=== PATIENT | female | born 1985 | race Caucasian/White ===

== ENCOUNTER 2019-04-11 13:38 | Outpatient (CLI) | payer OTHER ==
[~2019-04-11] VITALS: Ht 167.6 cm; Wt 87.9 kg
[~2019-04-11 13:38] MED LIST: PREN1TAB49 PO
[2019-04-11 14:13] VITALS: Ht 167.6 cm; Wt 87.9 kg
[2019-04-11 14:14] VITALS: BP 96/54; PULSE 83; RESP 20
[2019-04-11] MEDS ORDERED: ACETAMINOPHEN 325 MG TAB PO ONE (18:30)
--- NOTE | 2019-04-11 20:41 | PN ---
Triage Information Date/Time Reason for visit: Back pain and abdominal cramp Weeks of Gestation 24 weeks /Para -0-0-3 Diabetes: none Objective Vital Signs Date Temp Pulse Resp B/P (MAP) Pulse Ox O2 O2 Flow FiO2 Time Delivery Rate 04/11/19 98.1 83 20 96/54 (68) Room Air 14:14 Heart Rate: 130's Results/Medications Result Diagram: 04/11/19 1400 Results 24 hrs Laboratory Tests Test 04/11/19 14:00 White Blood Count 8.2 # Red Blood Count 3.63 L Hemoglobin 10.8 L Hematocrit 33.2 L Mean Corpuscular Volume 91.5 Mean Corpuscular Hemoglobin 29.8 Mean Corpuscular Hemoglobin Concent 32.5 Red Cell Distribution Width 13.5 Platelet Count 271 Mean Platelet Volume 9.8 # Immature Granulocytes % 0.500 H Neutrophils % 68.8 Lymphocytes % 18.7 Monocytes % 6.9 Eosinophils % 4.7 Basophils % 0.4 Nucleated Red Blood Cells % 0.0 Immature Granulocytes # 0.040 H Neutrophils # 5.6 Lymphocytes # 1.5 Monocytes # 0.6 Eosinophils # 0.4 Basophils # 0.0 Nucleated Red Blood Cells # 0.0 Urine Color YELLOW Urine Clarity CLOUDY A Urine pH 5.0 Urine Specific [place] 1.024 Urine Ketones NEGATIVE Urine Nitrite NEGATIVE Urine Bilirubin NEGATIVE Urine Urobilinogen NEGATIVE Urine Leukocyte Esterase TRACE A Urine Microscopic RBC 2 Urine Microscopic WBC 6 H Urine Squamous Epithelial Cells MANY A Urine Bacteria FEW A Urine Mucus FEW A Urine Hemoglobin NEGATIVE Urine Glucose NEGATIVE Urine Total Protein NEGATIVE Disposition: Discharge Assessment/Plan 33 years old -0-0-3 with single intrauterine at 24 weeks with a ZAC of 07/28/2019 complaining of back pain and abdominal cramp. She states good movement. She denies nausea, vomiting, shortness of breath, chest pain, headache, visual changes, vaginal bleeding or LOF. -FHR: No sign of metabolic acidosis- Category I -Contractions: None -Ultrasound performed: Normal RERE, maximum vertical pocket 3.6 cm. Cervical length 3.9 cm -Symptoms and sign of labor, preeclampsia, kick count discussed with patient, she voiced understanding. All of her questions answered. -Patient was discharged home in stable condition with the appropriate discharge instructions provided. I would like patient to have close follow-up with her primary physician or outpatient clinic in 1-2 days or return to triage for worsening symptoms or any other urgent concerns. LINO MOELLER April 11, 2019 20:41
--- NOTE | 2019-04-12 04:14 | TRIAGE ---
OB Triage Datetime Report Generated by CPN: 04/12/2019 04:13 Datetime: 04/11/2019 17:25 Labor Evaluation Frequency: 0 Monitor Mode: External Pattern: Normal: <= 5 Contractions in 10 Minutes Resting Tone [place]: Relaxed Heart Rate FHR Baseline Rate: 135 Monitor Mode: External US Variability: Moderate 6-25 bpm Accelerations: 10X10 Decelerations: None Category: Category I Pain Assessment Pain Scale: 8 Pain Presence: Constant Pain Type: Ache Pain Location: Head Pain Goal: 3 Pain Relief Measures: Comfort Measures Datetime: 04/11/2019 16:42 Labor Evaluation Frequency: 0 Monitor Mode: External Pattern: Normal: <= 5 Contractions in 10 Minutes Resting Tone [place]: Relaxed Heart Rate FHR Baseline Rate: 145 Monitor Mode: External US Variability: Moderate 6-25 bpm Accelerations: None Decelerations: None Pain Assessment Pain Scale: 2 Pain Presence: Constant Pain Type: Ache Pain Location: Back Pain Goal: 3 Pain Relief Measures: Comfort Measures Datetime: 04/11/2019 15:30 Labor Evaluation Frequency: 0 Monitor Mode: External Pattern: Normal: <= 5 Contractions in 10 Minutes Resting Tone [place]: Relaxed Heart Rate FHR Baseline Rate: 135 Monitor Mode: External US Variability: Moderate 6-25 bpm Accelerations: 10X10 Decelerations: None Category: Category I Pain Assessment Pain Scale: 0 Pain Presence: None/Denies Pain Type: N/A Pain Goal: 3 Pain Relief Measures: Comfort Measures Datetime: 04/11/2019 14:30 Heart Rate FHR Baseline Rate: 140 FHR Baseline Changes: No Baseline Change Variability: Minimal - Undetectable to <=5 bpm Pain Assessment Pain Scale: 0 Pain Presence: None/Denies Pain Relief Measures: Comfort Measures Datetime: 04/11/2019 14:16 Stage of : OB Triage Assessment Type: Triage Maternal Assessment Level of Consciousness: Fully Conscious DTR's/Clonus: DTRs 2+; No Clonus Headache: Denies Blurred Vision: No Respiratory Effort: Unlabored; Regular Rhythm; Equal Expansion Breath Sounds, Left: Clear and Equal Breath Sounds, Right: Clear and Equal Nausea/Vomiting: Denies RUQ Epigastric Pain: Denies Lower Extremities Edema: None Degree: None Upper Extremities Edema: None Degree: None Facial Edema: None Temperature Route: Oral Fall Risk Assessment History of Falling: (0) No Secondary Diagnosis: (0) No Ambulatory Aid: (0) Bedrest/Nurse Assist IV Therapy: (0) No Gait: (0) Normal/Bedrest/Immobile Mental Status: (0) Oriented to Own Ability Fall Score: 0 Fall Risk Score Definition: No Risk: No action required Monitor Mode: External Monitor Mode: External US Pain Assessment Pain Scale: 0 Pain Presence: None/Denies Pain Type: N/A Vaginal Exam Dilatation (cms): DEFFER Membrane Status: Intact Datetime: 04/11/2019 14:09 Time of Arrival: 04/11/2019 14:09 EGA: 24.0 Arrived By: Ambulatory Arrived From: Home Chief Complaint: back pain AND MILD CRAMPING Movement: Present Contractions: Denies/Absent Rupture of Membranes: Denies Vaginal Bleeding: None Vaginal Discharge: Denies Recent Sexual Intercouse: Denies Patient Complaints: Back Pain Additional Patient Complaints: CBC,UA,CX LENGTH, BPP, PO HYDRATION Time Provider Notified: 04/11/2019 14:45 Provider Notified: CAROL Initial Plan: MONITOR, CBC, U/A, CL, RERE
== END 2019-04-11 20:17 | disposition home or self-care (01) ==
LOC: OBT 13:38 → L-D 13:38 → OBT 20:17
PROVIDERS: ATTEND Obstetrics & Gynecology
DX: O26.892 Other specified pregnancy related conditions, second trimester (principal); R10.9 Unspecified abdominal pain; M54.9 Dorsalgia, unspecified; Z3A.24 24 weeks gestation of pregnancy
CPT/HCPCS: 76815; 76817; 81001; 85025; Z7500; Z7610; G0463

== ENCOUNTER 2019-07-01 21:26 | Outpatient (CLI) | payer OTHER ==
[~2019-07-01] VITALS: Ht 167.6 cm; Wt 90.0 kg
[~2019-07-01 21:26] MED LIST changes: +NIFE10CA PO
[2019-07-01 22:25] VITALS: Ht 167.6 cm; Wt 90.0 kg
[2019-07-01 22:26] VITALS: BP 111/64; PULSE 77; RESP 18
[2019-07-01] MEDS ORDERED: LACTATED RINGER'S 1,000 ML IV ONE (23:00)
[2019-07-01] MEDS ORDERED: TERBUTALINE 1 MG/ML INJ SC ONE (23:00)
[2019-07-02] MEDS ORDERED: TERBUTALINE 1 MG/ML INJ SC ONE (00:30)
[2019-07-02] MEDS ORDERED: BETAMET NA PHOS/AC(6 MG/ML) 2 ML INJ SYG IM SCH (01:00)
--- NOTE | 2019-07-02 12:52 | PN ---
Triage Information Date/Time Late entry note for exam done on July 01, 2019 Reason for visit: Uterine contractions Weeks of Gestation 36 weeks and 2 days /Para 4 para 3 Diabetes: none Hypertention: none Additional information 34-year-old G4, P3 with IUP at 36 weeks and 2 days presented with complaint of cramps and uterine contractions. She was noted to be 2 cm dilated/50/-3. Denies any leaking of fluid or vaginal bleeding or decreased movement. Objective Vital Signs Date Temp Pulse Resp B/P (MAP) Pulse Ox O2 O2 Flow FiO2 Time Delivery Rate 07/01/19 97.7 77 18 111/64 Room Air 22:26 (80) Intake and Output 07/01/19 07/01/19 07/02/19 1515:00 23:00 07:00 IntakeIntake Total 1000 ml BalanceBalance 1000 ml Heart Rate: 130's Heart Rate Comments Appropriate for gestational age and category 1 Contractions: < 5 Minutes Apart Exam Appearance: Alert and oriented x4 appears to be in mild to moderate distress Abdomen: Soft, gravid, fundal height consider gestational age, no tenderness, no tenderness, no guarding, no rigidity NST: Category 1 and appropriate for gestational age Sterile vaginal examination: 2/50/-3 BPP: 06/25 RERE: 11.3 Laboratory Tests Test 07/01/19 23:00 Urine Color YELLOW Urine Clarity CLEAR Urine pH 7.0 Urine Specific [place] 1.012 Urine Ketones NEGATIVE Urine Nitrite NEGATIVE Urine Bilirubin NEGATIVE Urine Urobilinogen NEGATIVE Urine Leukocyte Esterase TRACE A Urine Microscopic RBC 1 Urine Microscopic WBC 1 Urine Squamous Epithelial Cells FEW Urine Bacteria FEW A Urine Hemoglobin NEGATIVE Urine Glucose NEGATIVE Urine Total Protein NEGATIVE Results/Medications Results 24 hrs Laboratory Tests Test 07/01/19 23:00 Urine Color YELLOW Urine Clarity CLEAR Urine pH 7.0 Urine Specific [place] 1.012 Urine Ketones NEGATIVE Urine Nitrite NEGATIVE Urine Bilirubin NEGATIVE Urine Urobilinogen NEGATIVE Urine Leukocyte Esterase TRACE A Urine Microscopic RBC 1 Urine Microscopic WBC 1 Urine Squamous Epithelial Cells FEW Urine Bacteria FEW A Urine Hemoglobin NEGATIVE Urine Glucose NEGATIVE Urine Total Protein NEGATIVE Disposition: Discharge Assessment/Plan IUP at 36 weeks and 2 days Cramps and uterine contractions Status post IV hydration and terbutaline x2 Symptoms resolved Patient was comfortable after this treatment Received a dose of steroid She was discharged home in stable condition with a strict labor precautions and kick count and follow-up in 24 hours with a triage again to receive the second dose of steroid Patient verbalized understanding. All questions answered to patient with satisfaction. Primary OB aware of the treatment plan of care. HENOK RYO MD Jul 02, 2019 12:52
== END 2019-07-02 01:31 | disposition home or self-care (01) ==
LOC: OBT 21:26 → L-D 21:28 → OBT 07-02 01:31
PROVIDERS: ATTEND Obstetrics & Gynecology
DX: O62.9 Abnormality of forces of labor, unspecified (principal); Z3A.36 36 weeks gestation of pregnancy
CPT/HCPCS: 36415; 76818; 81001; 96360; J0702; J3105; J7120; Z7500; G0463

== ENCOUNTER 2019-07-02 23:28 | Outpatient (CLI) | payer OTHER ==
[~2019-07-02] VITALS: Ht 167.6 cm; Wt 89.7 kg
[2019-07-03] MEDS ORDERED: BETAMET NA PHOS/AC(6 MG/ML) 2 ML INJ SYG IM ONE
--- NOTE | 2019-07-03 03:32 | TRIAGE ---
OB Triage Datetime Report Generated by CPN: 07/03/2019 03:32 Datetime: 07/03/2019 01:43 Stage of : OB Triage Monitor Mode: External Quality: Mild Pattern: Normal: <= 5 Contractions in 10 Minutes Resting Tone [place]: Relaxed Heart Rate FHR Baseline Rate: 140 Monitor Mode: External US FHR Baseline Changes: No Baseline Change Variability: Moderate 6-25 bpm Accelerations: 15X15 Decelerations: None Category: Category I Datetime: 07/03/2019 01:01 Stage of : OB Triage Monitor Mode: External Quality: Mild Pattern: Normal: <= 5 Contractions in 10 Minutes Resting Tone [place]: Relaxed Heart Rate FHR Baseline Rate: 140 Monitor Mode: External US FHR Baseline Changes: No Baseline Change Variability: Moderate 6-25 bpm Accelerations: 15X15 Decelerations: None Category: Category I Datetime: 07/03/2019 00:06 Time of Arrival: 07/02/2019 23:12 EGA: 36.2 Arrived By: Ambulatory Arrived From: Home Chief Complaint: c/o irreg ucs since am presents w/ orders for 2nd dose of betamethasone per D r [place] Movement: Present Contractions: Irregular Time Contractions Began: 07/02/2019 08:00 Rupture of Membranes: Denies Vaginal Bleeding: None Vaginal Discharge: Denies Recent Sexual Intercouse: Denies Abdominal Trauma: Not Applicable Patient Complaints: Cramping Time Provider Notified: 07/03/2019 00:05 Provider Notified: Dr Harris Initial Plan: NST,BETA Datetime: 07/03/2019 00:05 Stage of : OB Triage Monitor Mode: External Quality: Mild Pattern: Normal: <= 5 Contractions in 10 Minutes Resting Tone [place]: Relaxed Heart Rate FHR Baseline Rate: 145 FHR Baseline Changes: No Baseline Change Variability: Moderate 6-25 bpm Datetime: 07/02/2019 23:45 Stage of : OB Triage Maternal Assessment Level of Consciousness: Keenly Alert, Responsive Headache: Denies Blurred Vision: No Respiratory Effort: Unlabored Nausea/Vomiting: Denies RUQ Epigastric Pain: Denies Facial Edema: None Monitor Mode: External Resting Tone [place]: Relaxed Heart Rate FHR Baseline Rate: 150 Monitor Mode: External US Pain Assessment Pain Scale: 7 Pain Presence: Intermittent Pain Type: Cramping Datetime: 07/02/2019 01:03 Labor Evaluation Frequency: OCCASIONAL Monitor Mode: External Duration (sec)2399: 40-60 Quality: Mild Resting Tone [place]: Relaxed Heart Rate FHR Baseline Rate: 145 Monitor Mode: External US Variability: Moderate 6-25 bpm Accelerations: 15X15 Decelerations: None Category: Category I Datetime: 07/02/2019 00:45 Pain Assessment Pain Scale: 3 Pain Presence: Intermittent Pain Type: Cramping Pain Location: Abdomen Pain Goal: 3 Vaginal Exam Dilatation (cms): 2.0 Effacement (%): 50 Station: -4 Exam By: EM Datetime: 07/02/2019 00:00 Labor Evaluation Frequency: 7-10 Monitor Mode: External Duration (sec)2399: 50-90 Quality: Mild Resting Tone [place]: Relaxed Heart Rate FHR Baseline Rate: 145 Monitor Mode: External US Variability: Moderate 6-25 bpm Accelerations: 15X15 Decelerations: None Category: Category I Datetime: 07/01/2019 23:00 Labor Evaluation Frequency: 2.5-7 Monitor Mode: External Duration (sec)2399: 40-60 Quality: Mild Resting Tone [place]: Relaxed Heart Rate FHR Baseline Rate: 145 Monitor Mode: External US Variability: Moderate 6-25 bpm Accelerations: None Decelerations: None Category: Category I Datetime: 07/01/2019 22:35 Vaginal Exam Dilatation (cms): 2.0 Effacement (%): 50 Station: -4 Exam By: EM Presentation 'A': Unable to Assess Datetime: 07/01/2019 22:23 Time of Arrival: 07/01/2019 21:18 EGA: 36.1 Arrived By: Ambulatory Arrived From: Home Chief Complaint: PT PRESENTS TO TRIAGE WITH C/O UC'S SINCE 1529 Movement: Present Contractions: Regular Time Contractions Began: 07/01/2019 15:30 Contractions: 2-7 Rupture of Membranes: Denies Vaginal Bleeding: None Vaginal Discharge: Denies Recent Sexual Intercouse: Denies Abdominal Trauma: Not Applicable Patient Complaints: Contractions Initial Plan: EFM Datetime: 07/01/2019 22:21 Stage of : OB Triage Assessment Type: Triage Maternal Assessment Level of Consciousness: Keenly Alert, Responsive DTR's/Clonus: DTRs 2+; No Clonus Headache: Denies Blurred Vision: No Respiratory Effort: Unlabored; Regular Rhythm; Equal Expansion Breath Sounds, Left: Clear and Equal Breath Sounds, Right: Clear and Equal Nausea/Vomiting: Denies RUQ Epigastric Pain: Denies Lower Extremities Edema: None Degree: None Upper Extremities Edema: None Degree: None Facial Edema: None Temperature Route: Oral Fall Risk Assessment History of Falling: (0) No Secondary Diagnosis: (0) No Ambulatory Aid: (0) Bedrest/Nurse Assist IV Therapy: (0) No Gait: (0) Normal/Bedrest/Immobile Mental Status: (0) Oriented to Own Ability Fall Score: 0 Fall Risk Score Definition: No Risk: No action required Pain Assessment Pain Scale: 6 Pain Presence: Intermittent Pain Type: Contraction Pain Location: Abdomen Pain Goal: 3 Pain Relief Measures: Comfort Measures Datetime: 07/01/2019 22:20 Contraction Comments: TOCO APPLIED Comments: US APPLIED Datetime: 04/11/2019 20:01 Stage of : OB Triage Monitor Mode: External Quality: Mild Pattern: Normal: <= 5 Contractions in 10 Minutes Resting Tone [place]: Relaxed Heart Rate FHR Baseline Rate: 145 Monitor Mode: External US FHR Baseline Changes: No Baseline Change Variability: Moderate 6-25 bpm Accelerations: 10X10 Category: Category I Datetime: 04/11/2019 19:30 Stage of : OB Triage Maternal Assessment Level of Consciousness: Fully Conscious Headache: Denies Blurred Vision: No Nausea/Vomiting: Denies RUQ Epigastric Pain: Denies Facial Edema: None Monitor Mode: External Pattern: Normal: <= 5 Contractions in 10 Minutes Resting Tone [place]: Relaxed Heart Rate FHR Baseline Rate: 145 Monitor Mode: External US FHR Baseline Changes: No Baseline Change Variability: Moderate 6-25 bpm Accelerations: 15X15 Decelerations: None Category: Category I Pain Presence: None/Denies Pain Type: N/A Datetime: 04/11/2019 14:16 Fall Score: 0 Fall Risk Score Definition: No Risk: No action required Datetime: 04/11/2019 14:09 EGA: 24.4
--- NOTE | 2019-07-03 09:26 | PN ---
Triage Information Date/Time 07/03/19 Reason for visit: Uterine contractions Weeks of Gestation 36w3d /Para hx of PTL Diabetes: none Hypertention: none Additional information here for second dose of BMZ on procardia 10mg q6hrs gastric sleeve in 2018 Objective Exam VE 50/-4 yesterday no exam today since UC's not significant Results/Medications Medications BMZ Disposition: Discharge Assessment/Plan A IUP 36w3d NIL latent phase second dose BMZ given P discharge home with routine labor instructions RTH prn MARLINE SPICER MD Jul 03, 2019 09:26
== END 2019-07-03 02:45 | disposition home or self-care (01) ==
LOC: OBT 23:28 → L-D 23:28 → OBT 07-03 02:45
PROVIDERS: ATTEND Obstetrics & Gynecology
DX: O62.9 Abnormality of forces of labor, unspecified (principal); Z3A.36 36 weeks gestation of pregnancy
CPT/HCPCS: J0702; Z7500; G0463